=== PATIENT | male | born 1965 | race Caucasian/White ===

== ENCOUNTER 2017-10-20 08:27 | Emergency (ER) | payer BC ==
[2017-10-20 09:04] LABS: PLATELET COUNT 297 10^3/uL (150-400)
[2017-10-20] MEDS ORDERED: HYDROmorphONE/DILAUDID 1 MG/ML INJ IVP ONE (09:08)
[2017-10-20] MEDS ORDERED: ONDANSETRON 4 MG/2 ML VIAL IVP ONE (09:08)
[2017-10-20] MEDS ORDERED: NS 1,000 ML IV ONE ×2 (09:08→10:48)
--- NOTE | 2017-10-20 09:25 | EDPHY ---
General Time Seen by Provider: 10/20/17 09:05 Narrative: CHIEF COMPLAINT: Abdominal pain, back pain, previous kidney stone HISTORY OF PRESENT ILLNESS: Patient presents with complaints of left abdominal and back pain. This started at 4:30 a.m. This morning, waking him from sleep. It is severe, 10/10 pain. Worse with palpation movement. Radiates into the left groin and testicle. No difficulty with urination but does have frequent urination. No fever. Nausea but no vomiting. Decreased appetite. History of previous renal colic that past without intervention. No chest pain or shortness of breath. No other associated complaints or modifying factors REVIEW OF SYSTEMS: 10 systems were reviewed and negative with the exception of the elements mentioned in the history of present illness. PCP: Dr. Braxton Eckert SPECIALISTS: None currently PAST MEDICAL HISTORY: Renal colic, hypertension PAST SURGICAL HISTORY: No recent surgical history. He had a recent colonoscopy with single polyp. SOCIAL HISTORY: Nonsmoker. Lives independent with his spouse FAMILY HISTORY: Noncontributory EXAMINATION: General Appearance: Alert, no distress Head: normocephalic, atraumatic Eyes: Pupils equal and round, no conjunctival pallor or injection ENT, Mouth: Mucous membranes moist Neck: Normal inspection, supple, non-tender Respiratory: Lungs are clear to auscultation Cardiovascular: Regular rate and rhythm Gastrointestinal: Obese Abdomen is soft and nondistended. Mild tenderness of the left side of the abdomen. Left CVA tenderness. No tympany or rigidity. No guarding. Bowel sounds present all 4 quadrants Back: non-tender, no bony abnormalities Neurological: A&O, nonfocal, normal gait Skin: Warm and dry, no rash no petechiae or purpura Extremities: Nontender, no pedal edema Psychiatric: Mood and affect normal DIFFERENTIAL DIAGNOSES: Including but not limited to renal colic, ureteral colic, diverticulitis, colitis, pancreatitis MDM: 9:05 a.m. Left lower quadrant, left flank and left inguinal pain with history exam that suggest renal colic or ureteral colic. His vital signs are within normal limits. He does not meet SIRS criteria. Abdominal exam is nonsurgical at this time. High suspicion for renal colic. I have ordered IV fluid, pain medication nausea medication pending his urinalysis and renal function. 9:25 a.m. Renal function well within normal limits, and urinalysis does show 2+ blood. I have ordered Toradol in addition to the above medications and will re-evaluate. 10:35 a.m. Notified by radiologist Dr. Delgado. We discussed the findings of the CT scan the abdomen and pelvis. There is a left ureteral stone at the level L4. Changes as documented in the report. Possible mild small hiatal hernia. Patient re-evaluated. He is feeling much better. I have ordered a 2nd L fluid , 1 dose of Flomax and will re-evaluate. 11:20 a.m. Patient re-evaluated. Feeling much better. All discussed with Urology. I do feel he is stable for discharge 11:40 am. Case discussed with on-call urologist Dr. Dinero. He feels the patient is reasonable for discharge home. He request Flomax daily with a 30 day prescription, Toradol, 10 pills, and follow up with him this week. 11:45 a.m. Patient re-evaluated. I discussed my conversations with the urologist. We discussed those medications and he is comfortable being discharged home. We discussed strict ED precautions for fever, increasing flank pain, difficulty urinating, nausea vomiting. We discussed follow up with primary care physician regarding the fatty liver changes on CT scan and the hiatal hernia. I have answered all his questions. He and his spouse are comfortable this plan. Discharged home stable condition SUPERVISION: Patient was independently examined, but I discussed the case with my secondary supervising physician Dr. Aparicio CONSULTATION: Noncontributory - Diagnostics Imaging Results: Imaging Impressions Abdomen/Pelvis CT 10/20/17 09:47 Impression: 1. There is a 6 mm left ureterolith with mild upstream obstructive uropathy and left perinephric stranding. The calculus is identified on the assembler wet wash topogram. 2. Hepatomegaly with diffuse steatosis. 3. Small suspected hiatal hernia. Findings were discussed with Satya Arteaga PA-C at 10:35 AM, on 10/20/2017. Attention: This CT examination is specifically designed to evaluate patients who are clinically suspected of having acute obstructive uropathy. This examination does not use radiographic contrast, and as such, provides only a limited evaluation of the abdomen, pelvis, and retroperitoneum. If there is further clinical suspicion for pathological conditions other than obstructive uropathy, a complete CT evaluation of the abdomen and pelvis utilizing intravenous, oral, and rectal contrast should be considered. - History Smoking Status: Never smoked - Objective Vital Signs: Initial Vital Signs Temperature (C) 97.7 F 10/20/17 08:31 Heart Rate 88 10/20/17 08:31 Respiratory Rate 17 10/20/17 08:31 Blood Pressure 154/103 H 10/20/17 08:31 O2 Sat (%) 96 10/20/17 08:31 O2 Delivery Mode Room Air O2 (L/minute) 1 Allergies/Adverse Reactions: Penicillins Allergy (Verified 10/20/17 08:29) Home Medications: Medication Instructions Recorded Amlodipine Besylate 10/20/17 Aspirin 81mg (*) 10/20/17 Hydrochlorothiazide 10/20/17 Ketorolac Tromethamine [Toradol 1 tab PO Q6-8PRN PRN #10 tab 10/20/17 10mg tab] Losartan Potassium 10/20/17 Ondansetron Odt [Zofran Odt 4 mg 4 mg PO Q6 PRN #12 tab 10/20/17 (*)] Potassium Chloride 10/20/17 Tamsulosin HCl [Flomax 0.4 MG (*)] 0.4 mg PO DAILY #10 cap 10/20/17 oxyCODONE HCL/ACETAMINOPHEN 1 each PO Q4-6PRN PRN #11 tablet 10/20/17 [Percocet 5-325 mg Tablet] Laboratory Results: Laboratory Results 10/20/17 08:50 10/20/17 08:50 10/20/17 10/20/17 10/20/17 08:50 08:50 08:30 WBC 9.20 10^3/uL 10^3/uL (3.80-9.50) RBC 4.83 10^6/uL 10^6/uL (4.40-6.38) Hgb 15.5 g/dL g/dL (13.7-17.5) Hct 41.3 % % (40.0-51.0) MCV 85.5 fL fL (81.5-99.8) MCH 32.1 pg pg (27.9-34.1) MCHC 37.5 g/dL H g/dL (32.4-36.7) RDW 12.3 % % (11.5-15.2) Plt Count 297 10^3/uL 10^3/uL (150-400) MPV 9.9 fL fL (8.7-11.7) Neut % (Auto) 70.7 % % (39.3-74.2) Lymph % (Auto) 17.0 % % (15.0-45.0) [place] % (Auto) 9.1 % % (4.5-13.0) Eos % (Auto) 1.2 % % (0.6-7.6) Baso % (Auto) 1.1 % % (0.3-1.7) Nucleat RBC Rel Count 0.0 % % (0.0-0.2) Absolute Neuts (auto) 6.51 10^3/uL H 10^3/uL (1.70-6.50) Absolute Lymphs (auto) 1.56 10^3/uL 10^3/uL (1.00-3.00) Absolute Monos (auto) 0.84 10^3/uL H 10^3/uL (0.30-0.80) Absolute Eos (auto) 0.11 10^3/uL 10^3/uL (0.03-0.40) Absolute Basos (auto) 0.10 10^3/uL 10^3/uL (0.02-0.10) Absolute Nucleated RBC 0.00 10^3/uL 10^3/uL (0-0.01) Immature Gran % 0.9 % % (0.0-1.1) Immature Gran # 0.08 10^3/uL 10^3/uL (0.00-0.10) Sodium 142 mEq/L mEq/L (135-145) Potassium 3.3 mEq/L mEq/L (3.3-5.0) Chloride 104 mEq/L mEq/L (97-110) Carbon Dioxide 25 mEq/l mEq/l (22-31) Anion Gap 13 mEq/L mEq/L (8-16) BUN 15 mg/dL mg/dL (7-23) Creatinine 1.0 mg/dL mg/dL (0.7-1.3) Estimated GFR > 60 Glucose 164 mg/dL H mg/dL (70-100) Calcium 9.8 mg/dL mg/dL (8.5-10.4) Total Bilirubin 0.4 mg/dL mg/dL (0.1-1.4) Conjugated Bilirubin 0.1 mg/dL mg/dL (0.0-0.5) Unconjugated Bilirubin 0.3 mg/dL mg/dL (0.0-1.1) AST 36 IU/L IU/L (17-59) ALT 61 IU/L IU/L (21-72) Alkaline Phosphatase 74 IU/L IU/L (38-126) Total Protein 8.5 g/dL H g/dL (6.3-8.2) Albumin 4.8 g/dL g/dL (3.5-5.0) Lipase 263 IU/L IU/L (23-300) Urine Color Urine Appearance Urine pH Ur Specific [place] Urine Protein Urine Ketones Urine Blood Urine Nitrate Urine Bilirubin Urine Urobilinogen Ur Leukocyte Esterase Urine RBC Cancelled Urine WBC Cancelled Ur Epithelial Cells Cancelled Ur Renal Epithelial Cell Cancelled Urine Crystals Cancelled Ammonium Urate Crystals Cancelled Calcium Carbonate Cryst Cancelled Calcium Phosphate Cryst Cancelled Calcium Oxalate Crystal Cancelled Leucine Crystals Cancelled Cystine Crystals Cancelled Uric Acid Crystals Cancelled Triple Phos Crystals Cancelled Sulfonamide Crystals Cancelled Cholesterol Crystals Cancelled Tyrosine Crystals Cancelled Bilirubin Crystals Cancelled Amorphous Sediment Cancelled Urine Bacteria Cancelled Epithelial Casts Cancelled Fatty Casts Cancelled Hyaline Casts Cancelled Granular Casts Cancelled Waxy Casts Cancelled Broad Casts Cancelled RBC Casts Cancelled WBC Casts Cancelled Urine Mucus Cancelled Urine Trichomonas Cancelled Urine Yeast Cancelled Urine Sperm Cancelled Ur Oval Fat Bodies Cancelled Ur Free Fat Droplets Cancelled Urine Glucose Urine Comment Cancelled 10/20/17 08:30 WBC RBC Hgb Hct MCV MCH MCHC RDW Plt Count MPV Neut % (Auto) Lymph % (Auto) [place] % (Auto) Eos % (Auto) Baso % (Auto) Nucleat RBC Rel Count Absolute Neuts (auto) Absolute Lymphs (auto) Absolute Monos (auto) Absolute Eos (auto) Absolute Basos (auto) Absolute Nucleated RBC Immature Gran % Immature Gran # Sodium Potassium Chloride Carbon Dioxide Anion Gap BUN Creatinine Estimated GFR Glucose Calcium Total Bilirubin Conjugated Bilirubin Unconjugated Bilirubin AST ALT Alkaline Phosphatase Total Protein Albumin Lipase Urine Color YELLOW Urine Appearance CLEAR Urine pH 6.0 (5.0-7.5) Ur Specific [place] 1.011 (1.002-1.030) Urine Protein NEGATIVE (NEGATIVE) Urine Ketones NEGATIVE (NEGATIVE) Urine Blood 2+ H (NEGATIVE) Urine Nitrate NEGATIVE (NEGATIVE) Urine Bilirubin NEGATIVE (NEGATIVE) Urine Urobilinogen NEGATIVE EU EU (0.2-1.0) Ur Leukocyte Esterase NEGATIVE (NEGATIVE) Urine RBC 1-3 /hpf /hpf (0-3) Urine WBC 1-3 /hpf /hpf (0-3) Ur Epithelial Cells NONE SEEN /lpf /lpf (NONE-1+) Ur Renal Epithelial Cell Urine Crystals Ammonium Urate Crystals Calcium Carbonate Cryst Calcium Phosphate Cryst Calcium Oxalate Crystal Leucine Crystals Cystine Crystals Uric Acid Crystals Triple Phos Crystals Sulfonamide Crystals Cholesterol Crystals Tyrosine Crystals Bilirubin Crystals Amorphous Sediment Urine Bacteria TRACE /hpf H /hpf (NONE SEEN) Epithelial Casts Fatty Casts Hyaline Casts Granular Casts Waxy Casts Broad Casts RBC Casts WBC Casts Urine Mucus TRACE /lpf /lpf (NONE-1+) Urine Trichomonas Urine Yeast Urine Sperm Ur Oval Fat Bodies Ur Free Fat Droplets Urine Glucose NEGATIVE (NEGATIVE) Urine Comment Medications Given: Discontinued Medications Hydromorphone HCl (Dilaudid) 1 mg IVP EDNOW ONE Stop: 10/20/17 09:09 Last Admin: 10/20/17 09:14 Dose: 1 mg Sodium Chloride (Ns) 1,000 mls @ 0 mls/hr IV EDNOW ONE; Wide Open PRN Reason: Protocol Stop: 10/20/17 09:09 Last Admin: 10/20/17 09:16 Dose: 1,000 mls Sodium Chloride (Ns) 1,000 mls @ 0 mls/hr IV EDNOW ONE; Wide Open PRN Reason: Protocol Stop: 10/20/17 10:49 Last Admin: 10/20/17 11:00 Dose: 1,000 mls Ketorolac Tromethamine (Toradol) 30 mg IVP EDNOW ONE Stop: 10/20/17 09:27 Last Admin: 10/20/17 09:38 Dose: 30 mg Ondansetron HCl (Zofran) 4 mg IVP EDNOW ONE Stop: 10/20/17 09:09 Last Admin: 10/20/17 09:16 Dose: 4 mg Tamsulosin HCl (Flomax) 0.4 mg PO EDNOW ONE Stop: 10/20/17 10:49 Last Admin: 10/20/17 11:00 Dose: 0.4 mg Departure - Departure Disposition: Home, Routine, Self-Care Clinical Impression: Ureteral calculus, left, Hydronephrosis, left Condition: Good Instructions: Oxycodone/Acetaminophen (By mouth), Tamsulosin (By mouth), Renal Colic (ED), Ureteral Stones (ED) Additional Instructions: 1. Medications as prescribed and discussed 2. Do not take any ibuprofen or Aleve in conjunction with the Toradol that has been prescribed 3. Increase fluid intake for the next 2-[address] Dinero for outpatient care this week 5. Strict ED precautions for worsening pain, difficulty urinating, flank pain, fever, nausea vomiting Referrals: Braxton Eckert MD [Primary Care Provider] - As per Instructions Michael Dinero MD [Medical Doctor] - As per Instructions Prescriptions: Ketorolac Tromethamine [Toradol 10mg tab] 1 tab PO Q6-8PRN PRN #10 tab PRN Reason: Pain, Breakthrough Ondansetron Odt [Zofran Odt 4 mg (*)] 4 mg PO Q6 PRN #12 tab PRN Reason: Nausea/Vomiting, Use 1st oxyCODONE HCL/ACETAMINOPHEN [Percocet 5-325 mg Tablet] 1 each PO Q4-6PRN PRN # 11 tablet PRN Reason: Pain, Breakthrough Tamsulosin HCl [Flomax 0.4 MG (*)] 0.4 mg PO DAILY #10 cap
[2017-10-20] MEDS ORDERED: KETOROLAC 30 MG/1 ML SDV IVP ONE (09:26)
[2017-10-20] MEDS ORDERED: TAMSULOSIN HCL 0.4 MG CAP PO ONE (10:48)
[2017-10-20 11:56] VITALS: BP 139/85
== END 2017-10-20 12:25 | disposition home or self-care (01) ==
DX: N20.1 Calculus of ureter (principal); N13.30 Unspecified hydronephrosis; E86.9 Volume depletion, unspecified
CPT/HCPCS: 96374; J1170; J1885; J2405